=== PATIENT | female | born 1990 ===

== ENCOUNTER 2017-05-17 22:53 | Emergency (ER) | payer SELFPAY ==
[2017-05-17 23:28] LABS: Bilirubin Moderate (Negative); Blood, Urine Negative (Negative); Glucose, Urine (Dipstick) Negative (Negative); Ketone, Urine Negative (Negative); Nitrite Positive (Negative); Protein, Urine (Dipstick) 100 mg/dL (Neg-Trace); Urobilinogen 0.2 mg/dL (0.2-1.0)
[2017-05-17 23:34] LABS: Bacteria/HPF 4+ HPF (None Seen); Hyaline Casts/LPF 4-6 HYALINE CAST LPF (0-3 Hyaline); Squamous Epithelial 0-3 HPF (0-3)
[2017-05-17] MEDS ORDERED: methylPREDNISolone Sod Succ/PF 125 MG/2 ML VIAL ONE (23:47)
[2017-05-17] MEDS ORDERED: Cyclobenzaprine 10 MG TAB ONE (23:47)
[2017-05-17] MEDS ORDERED: traMADol HCl 50 MG TAB ONE (23:47)
== END 2017-05-18 00:16 | disposition home or self-care (01) ==
LOC: ERS 22:53
DX: N39.0 Urinary tract infection, site not specified (principal)
CPT/HCPCS: 81003; 81015; 96372; J2930